=== PATIENT | male | born 1995 | race Caucasian/White ===

== ENCOUNTER 2017-05-31 16:49 | Emergency (ER) | payer OTHER ==
[~2017-05-31] VITALS: Ht 175.3 cm; Wt 92.9 kg
[2017-05-31] MEDS ORDERED: NORCO, ANEXSIA 5/325MG TABLET (HYDROcodone/ACETAMINOPHEN) PO ONE (19:45)
[2017-05-31 21:28] VITALS: BP 103/63
--- NOTE | 2017-06-01 02:07 | REP ---
Clinical: Chest wall pain with trauma . Comparison: None . Technique: PA and lateral. Findings: The mediastinum and cardiac silhouette are normal. The lung morejon are clear and without acute consolidation, effusion, or pneumothorax. The skeletal structures are intact and normal. Impression: 1. No acute cardiopulmonary process. Signed by Mannie Dewitt MD 06/01/2017 01:58 A
--- NOTE | 2017-06-01 02:08 | REP ---
Clinical: Sternum pain with trauma. Technique: Lateral and oblique views of the sternum. Findings: The sternum appears intact. The sternoclavicular joints appear symmetric and normal. The overlying soft tissues are grossly unremarkable. Impression: Normal sternal radiographs. Signed by Mannie Dewitt MD 06/01/2017 02:00 A
== END 2017-05-31 21:30 | disposition home or self-care (01) ==
LOC: M ED 16:49
DX: S20.219A Contusion of unspecified front wall of thorax, initial encounter (principal); W51.XXXA Accidental striking against or bumped into by another person, initial encounter; Y92.89 Other specified places as the place of occurrence of the external cause; Y93.61 Activity, american tackle football; Y99.8 Other external cause status